=== PATIENT | female | born 1985 | race Caucasian/White ===

== ENCOUNTER 2020-05-11 08:56 | Inpatient (IN) | payer OTHER ==
[~2020-05-11] VITALS: Ht 162.6 cm; Wt 3.6 kg
[~2020-05-11 08:56] MED LIST: PERCOCET 5/3251 TAB PO
[2020-05-11] MEDS ORDERED: TERBUTALINE SU2.5 MG PO (10:05)
[2020-05-11] MEDS ORDERED: NIFEDIPINE20 MG PO (10:06)
[2020-05-11] MEDS ORDERED: PROCARDIA PO (10:06)
[2020-05-11] MEDS ORDERED: PRENATAL TABLE1 EAC1 PO (10:06)
[2020-05-11] MEDS ORDERED: AMOX1TAB5 PO (10:07)
[2020-05-11] MEDS ORDERED: NIFEDIPINE ER30 M1 (10:42)
[2020-05-11] MEDS ORDERED: AMPICILLIN TRI500 MG (10:42)
== END 2020-05-13 12:48 | disposition home or self-care (01) | DRG 788 ==
LOC: SURG-SUITE 08:56 → LDR 08:56 → SURG-SUITE 12:43
PROVIDERS: ADMIT Specialist; ATTEND Specialist
PROC: 4A1HXFZ Monitoring of Products of Conception, Cardiac Rhythm, External Approach (ICD-10-PCS; 2020-05-11)
PROC: 10D00Z1 Extraction of Products of Conception, Low, Open Approach (ICD-10-PCS; principal; 2020-05-11 12:00)
DX: O65.5 Obstructed labor due to abnormality of maternal pelvic organs (principal); O34.211 Maternal care for low transverse scar from previous cesarean delivery; Z3A.37 37 weeks gestation of pregnancy; Z37.0 Single live birth; Z20.822 Contact with and (suspected) exposure to COVID-19